=== PATIENT | male | born 1980 | race Caucasian/White ===

== ENCOUNTER 2020-09-07 15:09 | Emergency (ER) | payer OTHER, BC ==
[2020-09-07] MEDS ORDERED: Bacitracin Oint 1 GM U/D Packet TOP ONE (15:45)
--- NOTE | 2020-09-07 15:56 | EDM.PDOC ---
ED HPI GENERAL MEDICAL PROBLEM - General Chief Complaint: Laceration Stated Complaint: SMASHED FINGER WITH PIPE WRENCH Time Seen by Provider: 09/07/20 15:45 Source of Information: Reports: Patient History Limitations: Reports: No Limitations - History of Present Illness INITIAL COMMENTS - FREE TEXT/NARRATIVE: Topher is a 39 year old male whom present to ER with a Left fifth digit injury which occurred about 1 hr before presenting to ER. Topher works for was using an pipe wrench when the wrench slipped and got finger caught between wrench and pipe resulting in a laceration involving left fifth digit. Topher's injury occurred while working for [employer]. Left Finger-Little Pain Score (Numeric/FACES): 2 - Related Data Allergies Allergy/AdvReac Type Severity Reaction Status Date / Time Penicillins Allergy Hives Verified 09/07/20 15:29 Home Meds: Home Meds Metoprolol Succinate [Toprol Xl] 100 mg PO DAILY 09/07/20 [History] Past Medical History Cardiovascular History: Reports: Hypertension Social & Family History - Tobacco Use Tobacco Use Status *Q: Never Tobacco User - Recreational Drug Use Recreational Drug Use: No ED ROS GENERAL - Review of Systems Review Of Systems: Comprehensive ROS is negative, except as noted in HPI. ED EXAM, SKIN/RASH Exam: See Below Exam Limited By: No Limitations General Appearance: Alert, WD/WN, Mild Distress (left fifth digit injury) Eye Exam: Bilateral Eye: Normal Inspection Ears: Normal External Exam, Hearing Grossly Normal Nose: Normal Inspection Throat/Mouth: Normal Voice, No Airway Compromise Neck: Normal Inspection, Full Range of Motion Respiratory/Chest: No Respiratory Distress, Normal Breath Sounds Cardiovascular: Normal Peripheral Pulses, Regular Rate, Rhythm Extremities: Normal Inspection, Other (left fifth digit injury, laceration (extensor surface) irreguaor at level of middle phalanx ) Neurological: Alert, Oriented, CN II-XII Intact, Normal Cognition Psychiatric: Normal Affect, Normal Mood Skin: Warm, Dry, Intact, Normal Color Location, Skin: Upper Extremity, Left (irregualr laceration left fifth digit ) ED SKIN PROCEDURES - Laceration/Wound Repair Left Digit - 5th (Baby) Appearance: Stellate, Irregular Anesthetic Type: Digital (finger tourniquet placed to allow for improved exploration and anesthetic results.) Local Anesthesia - Lidocaine (Xylocaine): 1% with EPI Local Anesthetic Volume: 3cc Skin Prep: Chlorhexidine (Hibiciens), Saline Saline Irrigation (cc's): 500 Exploration/Debridement/Repair: Wound Explored, In a Bloodless Field, Explored to Base (tendon visualized with out injury or loss of function noted. ), No Foreign Material Found (but cleanse by nursing staff to remove crease before evaluation), Wound Margins Revised, Multiple Flaps Aligned Closed with: Sutures Lac/Wound length In cm: 5.5 Suture Size: 5-0 # of Sutures: 7 Suture Type: Nylon, Simple Course - Vital Signs Last Recorded V/S: Last Vital Signs Temp 36.7 C 09/07/20 15:32 Pulse 70 09/07/20 15:32 Resp 16 09/07/20 15:32 BP 163/104 H 09/07/20 15:32 Pulse Ox 93 L 09/07/20 15:32 - Orders/Labs/Meds Orders: Active Orders 24 hr Category Date Time Status Fingers Fifth Digit Lt F4 [CR] Stat Exams 09/07/20 16:16 Taken Meds: Medications Discontinued Medications Generic Name Dose Route Start Last Admin Trade Name Jennifer PRN Reason Stop Dose Admin Bacitracin 1 dose 09/07/20 15:45 09/07/20 15:59 Bacitracin Oint 1 Gm U/D Packet TOP 09/07/20 15:46 1 dose ONETIME ONE Administration Lidocaine HCl 5 ml 09/07/20 15:45 09/07/20 16:00 Lidocaine 1% 5 Ml Sdv INJECT 09/07/20 15:46 5 ml ONETIME ONE Administration Departure - Departure Time of Disposition: 17:11 Disposition: Home, Self-Care 01 Clinical Impression: Finger laceration with complication - Discharge Information Instructions: Laceration Care, Adult, Crush Injury of the Hand, [id number] Referrals: PCP,None [Primary Care Provider] - Forms: ED Department Discharge Additional Instructions: 1. Keflex 500 mg every am and pm x 5 days. 2. Keep wound clean, dry and covered while at work. If bandage become saturated, wash hands ans apply a new dry dressing. 3. Call primary clinic for wound check in 5-7 days and possible suture removal in 7-10 days. 4. Crush injury in contaminated area increased risk of infection and tendon infection due to exposure. 5. Wound was cleaned to decrease risk but can not prevent an infection for occurring. Discharge Instructions Laceration (Cut) You were seen today for a laceration (cut). Your provider examined your laceration for any problems such a buried foreign body (like glass, a splinter, or gravel), or injury to blood vessels, tendons, and nerves. Your provider may have also rinsed and/or scrubbed your laceration to help prevent an infection. It may not be possible to find all problems with your laceration on the first visit; occasionally foreign bodies or a tendon injury can go undetected. Your laceration may have been closed in one of several ways: No closure: many wounds will heal just fine without closure. Stitches: regular stitches that require removal. Bigelow: skin shakeel are often used in the scalp/head. Wound adhesive (glue): skin glue can be used for certain lacerations and doesnt require removal. Wound strips (aka Butterfly bandages or steri-strips): these are bandages that help to close a wound. Absorbable stitches: dissolving stitches that go away on their own and usually dont require removal. A small percentage of wounds will develop an infection regardless of how well the wound is cared for. Antibiotics are generally not indicated to prevent an infection so are only given for a small number of high-risk wounds. Some lacerations are too high risk to close, and are left open to heal because closure can increase the likelihood that an infection will develop. Remember that all lacerations, no matter how expertly repaired, will cause scarring. We consider many factors, techniques, and materials, in our efforts to provide the best possible cosmetic outcome. Please follow-up as instructed by your emergency provider today. Return to the clinic or Local Emergency Department right away if: You have more redness, swelling, pain, drainage (pus), a bad smell, or red streaking from your laceration as these symptoms could indicate an infection. You have a fever of 100.4F or more. You have bleeding that you cannot stop at home. If your cut starts to bleed, hold pressure on the bleeding area with a clean cloth or put pressure over the bandage. If the bleeding does not stop after using constant pressure for 30 minutes, you should return to the Emergency Department for further treatment. An area past the laceration is cool, pale, or blue compared with the other side, or has a slower return of color when squeezed. Your dressing seems too tight or starts to get uncomfortable or painful. For children, signs of a problem might be irritability or restlessness. You have loss of normal function or use of an area, such as being unable to straighten or bend a finger normally. You have a numb area past the laceration. Return to the Emergency Department or see your regular provider if: The laceration starts to come open. You have something coming out of the cut or a feeling that there is something in the laceration. Your wound will not heal, or keeps breaking open. There can always be glass, wood, dirt or other things in any wound. They will not always show up, even on x-rays. If a wound does not heal, this may be why, and it is important to follow-up with your regular provider. Home Care: Take your dressing off in 12-24 hours, or as instructed by your provider, to check your laceration. Remove the dressing sooner if it seems too tight or painful, or if it is getting numb, tingly, or pale past the dressing. Gently wash your laceration 1-2 times daily with clean water and mild soap. It is okay to shower or run clean water over the laceration, but do not let the laceration soak in water (no swimming). If your laceration was closed with wound adhesive or strips: pat it dry and leave it open to the air. For all other repairs: after you wash your laceration, or at least 2 times a day, apply antibiotic ointment (such as Neosporin or Bacitracin) to the laceration, then cover it with a Band-Aid or gauze. Keep the laceration clean. Wear gloves or other protective clothing if you are around dirt. Follow-up for removal: If your wound was closed with shakeel or regular stitches, they need to be removed according to the instructions and timeline specified by your provider today. If your wound was closed with absorbable (dissolving) sutures, they should fall out, dissolve, or not be visible in about one week. If they are still visible, then they should be removed according to the instructions and timeline specified by your provider today. Scars: To help minimize scarring: Wear sunscreen over the healed laceration when out in the sun. Massage the area regularly once healed. You may apply Vitamin E to the healed wound. Wait. Scars improve in appearance over months and years. If you were given a prescription for medicine here today, be sure toread all of the information (including the package insert) that comes with your prescription. This will include important information about the medicine, its side effects, and any warnings that you need to know about. The pharmacist who fills the prescription can provide more information and answer questions you may have about the medicine. If you have questions or concerns that the pharmacist cannot address, please call or return to the Emergency Department. Remember that you can always come back to the clinic or go to the Local Emergency Department if you are not able to see your regular provider in the amount of time listed above, if you get any new symptoms, or if there is anything that worries you. Sepsis Event Note (ED) - Evaluation Sepsis Screening Result: No Definite Risk - Focused Exam Vital Signs: Vital Signs Temp Pulse Resp BP Pulse Ox 09/07/20 15:32 36.7 C 70 16 163/104 H 93 L 09/07/20 15:24 36.7 C 70 16 163/104 H 93 L - My Orders Last 24 Hours: My Active Orders 09/07/20 16:16 Fingers Fifth Digit Lt F4 [CR] Stat - Assessment/Plan Last 24 Hours: My Active Orders 09/07/20 16:16 Fingers Fifth Digit Lt F4 [CR] Stat
--- NOTE | 2020-09-08 09:03 | CR ---
Fingers Fifth Digit Lt F4 CLINICAL HISTORY: Laceration FINDINGS: There is soft tissue laceration of the mid fifth digit. No underlying fracture or foreign body seen Impression: Laceration No fracture or foreign body Hemostasis device obscuring some detail of the proximal phalanx
== END 2020-09-07 17:35 | disposition home or self-care (01) ==
LOC: JP.ED 15:09
DX: S61.217A Laceration without foreign body of left little finger without damage to nail, initial encounter (principal); I10 Essential (primary) hypertension; Z88.0 Allergy status to penicillin; Z79.899 Other long term (current) drug therapy; W26.8XXA Contact with other sharp object(s), not elsewhere classified, initial encounter; Y99.0 Civilian activity done for income or pay
CPT/HCPCS: 12002; 73140-26-F4; 73140-F4; 99283; 99283-25